=== PATIENT | male | born 2000 | race Two or more races ===

== ENCOUNTER 2020-01-23 20:59 | Emergency (ER) | payer SELFPAY ==
[~2020-01-23] VITALS: Ht 180.3 cm; Wt 77.1 kg
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
[2020-01-23 21:16] VITALS: BP 122/68
--- NOTE | 2020-01-23 21:16 | NUR ---
ED Nurse Note: ERMD at bedside.
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
--- NOTE | 2020-01-23 21:28 | NUR ---
ED Nurse Note: Patient taken to CT in stable condition.
--- NOTE | 2020-01-23 21:35 | NUR ---
ED Nurse Note: Patient returned from CT in stable condition.
--- NOTE | 2020-01-23 21:42 | Diagnostic Imaging Report ---
EXAM: CT Head Without Intravenous Contrast CLINICAL HISTORY: INJ TECHNIQUE: Axial computed tomography images of the head/brain without intravenous contrast. CTDI is 53.4 mGy and DLP is 1065.1 mGy-cm. One or more of the following dose reduction techniques were used: automated exposure control, adjustment of the mA and/or kV according to patient size, use of iterative reconstruction technique. COMPARISON: No relevant prior studies available. FINDINGS: Brain: No hemorrhage, extra-axial fluid collection, mass effect, or edema. No grossly evident acute ischemic infarct. Bones/joints: Unremarkable. No acute fracture. Soft tissues: Unremarkable. Sinuses: Unremarkable as visualized. Mastoid air cells: Unremarkable as visualized. No mastoid effusion. IMPRESSION: 1. No acute intracranial abnormality.
[2020-01-23 21:50] VITALS: BP 118/70
--- NOTE | 2020-01-23 21:50 | NUR ---
ER DISCHARGE NOTE: Patient is cleared to be discharged per ERMD, pt is aox4, on room air, with stable vital signs. pt was given dc instructions, pt was able to verbalize understanding, pt id band removed. pt is able to ambulate with steady gait. pt took all belongings. pt stable upon discharge.
== END 2020-01-23 21:50 | disposition home or self-care (01) ==
LOC: EMR 21:30
DX: S01.01XA Laceration without foreign body of scalp, initial encounter (principal); S09.90XA Unspecified injury of head, initial encounter; Y00.XXXA Assault by blunt object, initial encounter; Y92.9 Unspecified place or not applicable
CPT/HCPCS: 70450; 99284